=== PATIENT | male | born 1970 | race Caucasian/White ===

== ENCOUNTER 2017-11-26 07:49 | Emergency (ER) | payer OTHER, MEDICAID ==
[2017-11-26 07:58] VITALS: BP 139/74
[2017-11-26] MEDS ORDERED: KETOROLAC TROMETHAMINE INJ/PF 30 MG/1 ML SDV IM ONE (08:07)
[2017-11-26] MEDS ORDERED: DIAZEPAM 5 MG TABLET PO ONE (08:07)
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
== END 2017-11-26 09:19 | disposition home or self-care (01) ==
LOC: ER 07:49
DX: S16.1XXA Strain of muscle, fascia and tendon at neck level, initial encounter (principal); S39.012A Strain of muscle, fascia and tendon of lower back, initial encounter; S50.01XA Contusion of right elbow, initial encounter; M25.521 Pain in right elbow; M54.2 Cervicalgia; M62.830 Muscle spasm of back; V49.40XA Driver injured in collision with unspecified motor vehicles in traffic accident, initial encounter; F17.200 Nicotine dependence, unspecified, uncomplicated; J44.9 Chronic obstructive pulmonary disease, unspecified; Z88.0 Allergy status to penicillin; Z88.2 Allergy status to sulfonamides; R03.0 Elevated blood-pressure reading, without diagnosis of hypertension
CPT/HCPCS: 99283; 96372; 73080; 72110; 72070; J1885